=== PATIENT | female | born 1995 | race Caucasian/White ===

== ENCOUNTER 2024-09-19 15:14 | Outpatient (REF) | payer BC, SELFPAY ==
--- NOTE | 2024-09-19 14:50 | PAPFT_PTH ---
PATIENT: Karly Reza LOC: [facility] U#:[id number] AGE/SX: 29/F ROOM: RE09/19/[address]: Komal Yip NP : 1995 BED: DIS: 09/19/2024 SPEC #: [id number] RECD: 09/19/24 17:34 STATUS: ZULAY REBennett #: [id number] SIMONE: 09/19/24 14:[address]: Theodora DELACRUZ,Komal DEPT[facility] Cytology RECD BY: Georgia Hahn ENTERED: 09/19/24 17:34 SP TYPE: PAPFT OTHR DR: Unknown,Unknown Tissues: 1 - CX/ENDOCX FOR PAP SMEARS Procedures: PAP THIN PREP/[facility] Screening HPV DNA PROBE Comments: [id number] (HPV 16 & 18/45)
== END 2024-09-19 15:15 | disposition home or self-care (01) ==
LOC: LBN 15:14
PROVIDERS: Visit Provider Nurse Practitioner Women's Health
DX: Z12.4 Encounter for screening for malignant neoplasm of cervix (principal); Z11.51 Encounter for screening for human papillomavirus (HPV)
CPT/HCPCS: 88142; 87624

== ENCOUNTER 2025-01-30 01:29 | Outpatient (CLI) | payer BC, SELFPAY ==
[2025-01-30 10:49] LABS: Abs Immature Grans 0.01 10^3/uL (0.0-0.06); HCT 36.3 % (36.0-46.0); HGB 12.5 g/dL (11.2-15.7); Immature Grans % 0.1 %; MCH 30.6 pg (27.0-33.0); MCHC 34.4 % (32.0-36.0); MCV 89 fL (80-95); MPV 10.0 fL (8.0-11.0); Platelet Count 186 10^3/uL (130-400); RBC 4.09 10^6/uL (3.93-5.22); RDW 12.1 % (11.7-14.6); RDW-SD 39.0 fL; WBC 7.10 10^3/uL (4.4-10.8)
[2025-01-30 11:39] LABS: TSH (W/Ref FT4) 0.48 uIU/mL (0.55-4.78)
[2025-01-31 09:43] LABS: HIV-1/2 Ag & Ab Screen Negative (Negative)
[2025-01-31 10:16] LABS: Hepatitis C Ab w Rflx HCV PCR Negative (Negative)
[2025-01-31 10:32] LABS: Rubella IgG Ab (UVM) Positive (See Note)
[2025-02-03 13:47] LABS: Syphilis IgG w/Reflex Nonreactive (Nonreactive)
== END 2025-01-30 01:30 | disposition home or self-care (01) ==
LOC: LBO 01:29
PROVIDERS: Visit Provider Advanced Practice Midwife
DX: Z34.91 Encounter for supervision of normal pregnancy, unspecified, first trimester (principal)
CPT/HCPCS: 36415; 81220; 81222; 81329; 86787; 86803; 86850; 86900; 86901; 87340; 87389; 84439; 84443; 85025; 86762; 86780

== ENCOUNTER 2025-01-30 10:08 | Outpatient (REF) | payer BC, SELFPAY ==
[2025-01-30 13:53] LABS: Cannabinoids THC Positive (Negative); Fentanyl Scr w/Rflx to Conf, U Negative (Negative)
[2025-01-31 12:19] LABS: Chlamydia Result Negative (Negative); GC Result Negative (Negative)
== END 2025-01-30 10:09 | disposition home or self-care (01) ==
LOC: LBN 10:08
PROVIDERS: Visit Provider Advanced Practice Midwife
DX: Z34.91 Encounter for supervision of normal pregnancy, unspecified, first trimester (principal)
CPT/HCPCS: 80307; 80348; 87491; 87591; 87086